=== PATIENT | male | born 1975 ===

== ENCOUNTER 2018-03-15 01:08 | Emergency (ER) | payer BC ==
[2018-03-15] MEDS ORDERED: Lidocaine 1% 20 ML MDV ONE (01:23)
[2018-03-15] MEDS ORDERED: Adacel (T-DAP) 0.5 ML VIAL ONE (01:52)
[2018-03-15] MEDS ORDERED: Sulfameth/Trimethoprim DS 800-160mg TAB ONE (02:10)
== END 2018-03-15 02:20 | disposition home or self-care (01) ==
LOC: BURERS 01:08
DX: S01.522A Laceration with foreign body of oral cavity, initial encounter (principal); Z23 Encounter for immunization; G51.0 Bell's palsy; W45.8XXA Other foreign body or object entering through skin, initial encounter; Y92.009 Unspecified place in unspecified non-institutional (private) residence as the place of occurrence of the external cause
CPT/HCPCS: 40804; 90471; 90715; J2001